=== PATIENT | female | born 1995 | race Caucasian/White ===

== ENCOUNTER 2016-06-01 20:32 | Emergency (ER) | payer MEDICAID, OTHER ==
[~2016-06-01] VITALS: Ht 162.6 cm; Wt 86.8 kg
[~2016-06-01 20:32] MED LIST: NOCURR
[2016-06-01 23:23] LABS: ADD UA MICROSCOPIC YES; APPEARANCE,URINE CLOUDY (CLEAR); GLUCOSE, URINE (UA) NEGATIVE (NEGATIVE); KETONES,URINE NEGATIVE (NEGATIVE); LEUKOCYTE ESTERASE ,URINE MODERATE (NEGATIVE); OCCULT BLOOD,URINE LARGE (NEGATIVE); PROTEIN,URINE TRACE (NEGATIVE)
[2016-06-01 23:42] LABS: SQUAMOUS EPITHELIAL CELL,UR Moderate /LPF (None Seen)
[2016-06-02 00:04] VITALS: BP 109/72
== END 2016-06-02 00:06 | disposition home or self-care (01) ==
LOC: EMS 20:38
DX: N39.0 Urinary tract infection, site not specified (principal)
CPT/HCPCS: 87086; 99284

== ENCOUNTER 2017-01-08 21:21 | Emergency (ER) | payer OTHER ==
[~2017-01-08] VITALS: Ht 167.6 cm; Wt 81.8 kg
[2017-01-08] MEDS ORDERED: PREN1TAB26 PO (21:39)
[2017-01-08 22:07] LABS: BASOPHILS % (AUTO) 0.1 % (0.0-2.0); EOSINOPHILS % (AUTO) 0 % (1.0-6.0); HEMATOCRIT 35.8 % (36-46); HEMOGLOBIN 12.4 g/dL (12.0-16.0); LYMPHOCYTES # (AUTO) 0.6 K/uL (1.0-4.8); LYMPHOCYTES % (AUTO) 4.2 % (22.0-44.0); MEAN CORPUSCULAR HEMOGLOBIN 30.6 pg (26.0-34.0); MEAN CORPUSCULAR HGB CONC 34.6 G/dL (31.0-37.0); MEAN CORPUSCULAR VOLUME 88 fL (80-100); MONOCYTES # (AUTO) 0.6 K/uL (0.1-1.0); MONOCYTES % (AUTO) 4.1 % (2.0-9.0); NEUTROPHILS # (AUTO) 12.5 K/uL (1.8-7.7); PLATELET COUNT (AUTO) 304 K/uL (150-450); RED BLOOD CELL COUNT(AUTO) 4.05 MIL/uL (4.00-5.20); RED CELL DISTRIBUTION WIDTH 13.2 % (11.5-14.5); WHITE BLOOD COUNT (AUTO) 13.7 K/uL (4.5-11.0)
[2017-01-08 22:13] LABS: NEUTROPHILS % (AUTO) 91.6 % (40.0-70.0)
[2017-01-08] MEDS ORDERED: SODIUM CHLORIDE 0.9% 2,000 ML IV ONE (22:15)
[2017-01-08 22:31] LABS: ANION GAP 8 mmol/L (8-16); CARBON DIOXIDE 25 mmol/L (22-29); CHLORIDE 101 mmol/L (98-107); CREATININE 0.59 mg/dL (0.60-1.30); GLOMERULAR FILTR. RATE CALC > 60 mL/min (>60); POTASSIUM 3.6 mmol/L (3.5-5.1); SODIUM SERUM 134 mmol/L (136-145); UREA NITROGEN, BLOOD 6 mg/dL (7-18)
[2017-01-08] MEDS ORDERED: ONDANSETRON HCL 4 MG/2 ML VIAL IVP ONE (22:45)
[2017-01-08] MEDS ORDERED: ACETAMINOPHEN 500 MG TABLET PO ONE (22:45)
[2017-01-08 22:48] LABS: APPEARANCE,URINE CLOUDY (CLEAR); GLUCOSE, URINE (UA) NEGATIVE (NEGATIVE); KETONES,URINE TRACE mg/dL (NEGATIVE); LEUKOCYTE ESTERASE ,URINE NEGATIVE (NEGATIVE); OCCULT BLOOD,URINE SMALL (NEGATIVE); PH,URINE 5.5 (5.0-8.0); PROTEIN,URINE TRACE (NEGATIVE)
[2017-01-08 22:50] LABS: ADD UA MICROSCOPIC YES
[2017-01-08 22:59] LABS: ALANINE AMINOTRANSFERASE 33 U/L (12-78); ALBUMIN 3.2 g/dL (3.4-5.0); ASPARTATE AMINOTRANSFERASE 16 U/L (15-37); BILIRUBIN,TOTAL 0.2 mg/dL (0.1-1.0); TOTAL PROTEIN, SERUM 7.6 g/dL (6.4-8.2)
[2017-01-08 23:12] LABS: CALCIUM OXALATE CRYSTALS,UR Many /LPF (None Seen); SQUAMOUS EPITHELIAL CELL,UR Few /LPF (None Seen)
[2017-01-08 23:14] LABS: WBC,URINE 0-2 /HPF (0-5)
[2017-01-09 00:27] VITALS: BP 132/68
[2017-01-09 00:43] LABS: GLUCOSE,POINT OF CARE 138 MG/DL (70-110)
== END 2017-01-09 00:29 | disposition home or self-care (01) ==
LOC: EMS 21:22
DX: O26.891 Other specified pregnancy related conditions, first trimester (principal); G43.909 Migraine, unspecified, not intractable, without status migrainosus; E86.0 Dehydration
CPT/HCPCS: 36415; 80053; 81001; 82962; 84702; 85025; 86901; 96361; 96374; 99285; J2405; J7030

== ENCOUNTER 2017-04-20 21:00 | Observation (INO) | payer OTHER ==
[~2017-04-20] VITALS: Ht 154.9 cm; Wt 89.8 kg
[~2017-04-20 21:00] MED LIST changes: -NOCURR; +PREN1TAB26 PO
[2017-04-20 21:59] VITALS: BP 117/62
[2017-04-20] MEDS ORDERED: PREN-155 PO (22:02)
== END 2017-04-21 02:05 | disposition home or self-care (01) ==
LOC: 4S 21:00
PROVIDERS: ADMIT Obstetrics & Gynecology Gynecology; ATTEND Obstetrics & Gynecology Gynecology
DX: O42.912 Preterm premature rupture of membranes, unspecified as to length of time between rupture and onset of labor, second trimester (principal); O26.892 Other specified pregnancy related conditions, second trimester; R10.12 Left upper quadrant pain; Z3A.27 27 weeks gestation of pregnancy
CPT/HCPCS: 36415; 59025; 76815; 89060; G0378 ×2

== ENCOUNTER 2017-06-24 15:55 | Observation (INO) | payer OTHER ==
[~2017-06-24 15:55] MED LIST changes: +PREN-155 PO
[2017-06-24 16:37] LABS: GLUCOMETER DEV NAME(LOC) 4S 8; GLUCOSE,POINT OF CARE 79 MG/DL (70-110)
[2017-06-24] MEDS ORDERED: GLYB2.5 PO (16:45)
[2017-06-24 16:46] VITALS: BP 118/59
[2017-06-24] MEDS ORDERED: INFLUENZA VIRUS VACCINE QVS 2017-18 (3YR+)/PF 60 MCG/0.5 ML SYRINGE IM ONE (17:00)
== END 2017-06-24 18:25 | disposition home or self-care (01) ==
LOC: 4S 15:55
PROVIDERS: ADMIT Obstetrics & Gynecology Gynecology; ATTEND Obstetrics & Gynecology Gynecology
DX: O26.893 Other specified pregnancy related conditions, third trimester (principal); R10.30 Lower abdominal pain, unspecified; M54.5 Low back pain; O24.415 Gestational diabetes mellitus in pregnancy, controlled by oral hypoglycemic drugs; O99.213 Obesity complicating pregnancy, third trimester; Z3A.37 37 weeks gestation of pregnancy
CPT/HCPCS: 59025; 82962; G0378

== ENCOUNTER 2018-03-14 17:27 | Emergency (ER) | payer OTHER ==
[~2018-03-14] VITALS: Ht 162.6 cm; Wt 86.4 kg
[~2018-03-14 17:27] MED LIST changes: +GLYB2.5 PO
[2018-03-14 21:02] LABS: APPEARANCE,URINE CLEAR (CLEAR); BILIRUBIN,URINE NEGATIVE (NEGATIVE); GLUCOSE, URINE (UA) NEGATIVE (NEGATIVE); KETONES,URINE NEGATIVE (NEGATIVE); LEUKOCYTE ESTERASE ,URINE SMALL (NEGATIVE); NITRATE,URINE NEGATIVE (NEGATIVE); OCCULT BLOOD,URINE NEGATIVE (NEGATIVE); PROTEIN,URINE NEGATIVE (NEGATIVE); UROBILINOGEN,URINE 0.2 mg/dL (<=1.0)
[2018-03-14 21:18] LABS: BACTERIA,URINE Few /HPF (None Seen); RBC,URINE 0-2 /HPF (0-2); SQUAMOUS EPITHELIAL CELL,UR Moderate /LPF (None Seen)
[2018-03-14 22:40] LABS: BASOPHILS % (AUTO) 0.8 % (0.0-2.0); EOSINOPHILS % (AUTO) 1.3 % (1.0-6.0); HEMOGLOBIN 12.4 g/dL (12.0-16.0); LYMPHOCYTES # (AUTO) 2.7 K/uL (1.0-4.8); MEAN CORPUSCULAR HEMOGLOBIN 29.8 pg (26.0-34.0); MEAN CORPUSCULAR HGB CONC 34.3 G/dL (31.0-37.0); MEAN CORPUSCULAR VOLUME 87 fL (80-100); MONOCYTES # (AUTO) 0.7 K/uL (0.1-1.0); MONOCYTES % (AUTO) 5.7 % (2.0-9.0); NEUTROPHILS # (AUTO) 8.8 K/uL (1.8-7.7); NEUTROPHILS % (AUTO) 70.2 % (40.0-70.0); PLATELET COUNT (AUTO) 335 K/uL (150-450); RED BLOOD CELL COUNT(AUTO) 4.16 MIL/uL (4.00-5.20); RED CELL DISTRIBUTION WIDTH 13.4 % (11.5-14.5)
[2018-03-14 23:39] VITALS: BP 120/80
== END 2018-03-14 23:39 | disposition home or self-care (01) ==
LOC: EMS 17:27
DX: O23.41 Unspecified infection of urinary tract in pregnancy, first trimester (principal); O34.81 Maternal care for other abnormalities of pelvic organs, first trimester; N83.202 Unspecified ovarian cyst, left side; Z3A.11 11 weeks gestation of pregnancy
CPT/HCPCS: 76801; 76817; 86901; 87086

== ENCOUNTER 2018-06-20 08:43 | Emergency (ER) | payer OTHER ==
[~2018-06-20] VITALS: Ht 162.6 cm; Wt 93.2 kg
[~2018-06-20 08:43] MED LIST changes: -GLYB2.5 PO; -PREN1TAB26 PO
[2018-06-20 08:49] VITALS: BP 128/75
[2018-06-20 08:59] LABS: GLUCOSE,POINT OF CARE 156 MG/DL (70-110)
== END 2018-06-20 11:04 | disposition home or self-care (01) ==
LOC: EMS 08:44
DX: O9A.212 Injury, poisoning and certain other consequences of external causes complicating pregnancy, second trimester (principal); S93.602A Unspecified sprain of left foot, initial encounter; Z3A.21 21 weeks gestation of pregnancy; W18.40XA Slipping, tripping and stumbling without falling, unspecified, initial encounter; Y93.01 Activity, walking, marching and hiking; Y92.89 Other specified places as the place of occurrence of the external cause; Y99.8 Other external cause status
CPT/HCPCS: 29540

== ENCOUNTER 2021-08-07 22:39 | Emergency (ER) | payer OTHER ==
[~2021-08-07] VITALS: Ht 162.6 cm; Wt 100.0 kg
[2021-08-08 00:02] LABS: BASOPHILS % (AUTO) 0.7 % (0.0-2.0); EOSINOPHILS % (AUTO) 0.9 % (1.0-6.0); HEMATOCRIT 36.8 % (36-46); HEMOGLOBIN 12.2 g/dL (12.0-16.0); LYMPHOCYTES % (AUTO) 17.1 % (22.0-44.0); MEAN CORPUSCULAR HEMOGLOBIN 27.7 pg (26.0-34.0); MEAN CORPUSCULAR HGB CONC 33.2 G/dL (31.0-37.0); MEAN CORPUSCULAR VOLUME 83 fL (80-100); MONOCYTES # (AUTO) 0.7 K/uL (0.1-1.0); MONOCYTES % (AUTO) 5.9 % (2.0-9.0); NEUTROPHILS # (AUTO) 8.9 K/uL (1.8-7.7); NEUTROPHILS % (AUTO) 75.4 % (40.0-70.0); PLATELET COUNT (AUTO) 351 K/uL (150-450); RED BLOOD CELL COUNT(AUTO) 4.41 MIL/uL (4.00-5.20); RED CELL DISTRIBUTION WIDTH 13.5 % (11.5-14.5)
[2021-08-08 00:51] LABS: ALANINE AMINOTRANSFERASE 103 U/L (12-78); ALBUMIN 3.9 g/dL (3.4-5.0); ALKALINE PHOSPHATASE 62 U/L (46-116); ASPARTATE AMINOTRANSFERASE 38 U/L (15-37); BILIRUBIN,TOTAL 0.3 mg/dL (0.1-1.0); CALCIUM, TOTAL 9.6 mg/dL (8.8-10.5); CARBON DIOXIDE 31 mmol/L (22-29); CREATININE 0.69 mg/dL (0.60-1.30); GLOMERULAR FILTR. RATE CALC > 60 mL/min (>60); GLUCOSE,RANDOM 172 mg/dL (70-110); TOTAL PROTEIN, SERUM 8.1 g/dL (6.4-8.2); UREA NITROGEN, BLOOD 8 mg/dL (7-18)
[2021-08-08 00:59] LABS: ANION GAP 7 mmol/L (8-16); CHLORIDE 103 mmol/L (98-107); POTASSIUM 4.4 mmol/L (3.5-5.1); SODIUM SERUM 141 mmol/L (136-145)
[2021-08-08] MEDS ORDERED: ONDANSETRON HCL 4 MG/2 ML VIAL IVP ONE (01:45)
[2021-08-08] MEDS ORDERED: SODIUM CHLORIDE 0.9% 1,000 ML IV ONE (01:45)
[2021-08-08] MEDS ORDERED: LORazepam 2 MG/ML VIAL IVP ONE (01:45)
[2021-08-08] MEDS ORDERED: KETOROLAC TROMETHAMINE 30 MG/ML VIAL IVP ONE (01:45)
[2021-08-08] MEDS ORDERED: MORPHINE SULFATE 4 MG/ML SYRINGE IVP ONE (01:45)
[2021-08-08] MEDS ORDERED: IBUP-1554 PO (02:56)
[2021-08-08] MEDS ORDERED: LORA-1000 PO ×2 (02:56→02:58)
[2021-08-08] MEDS ORDERED: ONDA-104 PO (02:56)
[2021-08-08 05:02] VITALS: BP 114/68
== END 2021-08-08 05:30 | disposition home or self-care (01) ==
LOC: EMS 22:41
DX: G43.909 Migraine, unspecified, not intractable, without status migrainosus (principal); F41.8 Other specified anxiety disorders; Z87.2 Personal history of diseases of the skin and subcutaneous tissue
CPT/HCPCS: 36415; 80053; 84703; 85025; 96361; 96374; 96375; 99284; J1885; J2060; J2270; J2405; J7030

== ENCOUNTER 2023-05-31 18:09 | Emergency (ER) | payer OTHER ==
[~2023-05-31] VITALS: Ht 162.6 cm; Wt 85.5 kg
[~2023-05-31 18:09] MED LIST changes: +IBUP-1554 PO; +LORA-1000 PO; +ONDA-104 PO
[2023-05-31 18:15] VITALS: BP 131/74; PULSE 102; RESP 18; TEMP 98.3
[2023-05-31] MEDS ORDERED: CETIRIZINE HCL 10 MG TABLET PO ONE (19:00)
[2023-05-31 19:29] LABS: APPEARANCE,URINE CLEAR (CLEAR); BILIRUBIN,URINE NEGATIVE (NEGATIVE); COLOR,URINE YELLOW (YELLOW); GLUCOSE, URINE (UA) NEGATIVE (NEGATIVE); KETONES,URINE TRACE mg/dL (NEGATIVE); LEUKOCYTE ESTERASE ,URINE MODERATE (NEGATIVE); NITRATE,URINE NEGATIVE (NEGATIVE); OCCULT BLOOD,URINE NEGATIVE (NEGATIVE); PROTEIN,URINE TRACE mg/dL (NEGATIVE); SPECIFIC GRAVITIY, URINE 1.025 (1.003-1.030)
[2023-05-31 19:38] LABS: BACTERIA,URINE Few /HPF (None Seen); RBC,URINE 0-2 /HPF (0-2); SQUAMOUS EPITHELIAL CELL,UR Many /LPF (None Seen)
== END 2023-05-31 20:16 | disposition left against medical advice (07) ==
LOC: EMS 18:11
DX: O26.891 Other specified pregnancy related conditions, first trimester (principal); G43.909 Migraine, unspecified, not intractable, without status migrainosus; Z3A.01 Less than 8 weeks gestation of pregnancy
CPT/HCPCS: 81001; 87086; 87186; 99283